=== PATIENT | female | born 1980 | race Two or more races ===

== ENCOUNTER 2018-04-06 00:16 | Emergency (ER) | payer OTHER ==
[~2018-04-06] VITALS: Ht 177.8 cm; Wt 59.0 kg
[2018-04-06] MEDS ORDERED: ACETAMINOPHEN ES 500 MG TABLET PO ONE (00:30)
--- NOTE | 2018-04-06 00:30 | NUR ---
PATIENT WALKED INTO ER C/O LEFT HAND PALM LACERATION. PATIENT STATES SHE WAS CUTTING WATERMELON AND KNIFE SLIPPED AND LACERATED LEFT PALM. LACERATION IS ABOUT 1 1/2 INCH. BLEEDING STOPPED
[2018-04-06] MEDS ORDERED: ACETAMINOPHEN ES 500 MG TABLET ONE (00:40)
[2018-04-06 01:05] VITALS: BP 133/75
--- NOTE | 2018-04-06 01:05 | NUR ---
Patient discharged to home in stable conditon WITH TAKING PATIENT HOME. Written and verbal after care instructions given. Patient verbalizes understanding of instructions. WALKED OUT OF ER WITH NO DISTRESS NOTED
== END 2018-04-06 01:06 | disposition home or self-care (01) ==
LOC: ER 00:23
DX: S61.412A Laceration without foreign body of left hand, initial encounter (principal); W45.8XXA Other foreign body or object entering through skin, initial encounter; Y93.89 Activity, other specified; Y92.89 Other specified places as the place of occurrence of the external cause; Y99.8 Other external cause status
CPT/HCPCS: A4217; A4663; A9150

== ENCOUNTER 2019-07-20 11:00 | Emergency (ER) | payer OTHER, MEDICAID ==
[~2019-07-20] VITALS: Ht 172.7 cm; Wt 74.8 kg
[2019-07-20] MEDS ORDERED: KETOROLAC TROMETHAMINE 30 MG INJ ONE (11:27)
[2019-07-20] MEDS ORDERED: KETOROLAC TROMETHAMINE 30 MG INJ IM ONE (11:30)
[2019-07-20 11:31] LABS: *BILIRUBIN,URIN NEGATIVE (NEGATIVE); *BLOOD, URINE NEGATIVE (NEGATIVE); *CLARITY,URINE SLIGHTLY CLOUDY (CLEAR); *COLOR,URINE YELLOW (YELLOW); *KETONES,URINE TRACE (NEGATIVE); *UROBILINOGEN,URINE 0.2 E.U./dl (NORMAL); LEUKOCYTE ESTERASE ,URINE 3+ (NEGATIVE); NITRITE, URINE NEGATIVE (NEGATIVE); UGLUCOSE NEGATIVE (NEGATIVE)
[2019-07-20 11:32] LABS: *URINE HCG, QUAL NEGATIVE (NEGATIVE)
[2019-07-20 11:36] LABS: BACTERIA,URINE FEW /HPF (NONE SEEN); RBC,URINE NONE SEEN /HPF (0-3); SQUAMOUS EPITHELIAL CELL,UR MODERATE /HPF (NONE SEEN); WBC,URINE 0-3 /HPF (0-3)
--- NOTE | 2019-07-20 11:44 | NUR ---
Patient discharged to home in stable conditon. Written and verbal after care instructions given. Patient verbalizes understanding of instructions.PT WALKS IN STEADY GAIT. BACK PAIN DOWN TO TOLERABLE LEVEL.
== END 2019-07-20 11:51 | disposition home or self-care (01) ==
LOC: ER 11:00
DX: M54.9 Dorsalgia, unspecified (principal)
CPT/HCPCS: 81000; 81001; 84703; 87086; 96372; 99283; J1885; A4663

== ENCOUNTER 2021-05-29 21:49 | Inpatient (IN) | payer OTHER, MEDICAID ==
[~2021-05-29] VITALS: Ht 172.7 cm; Wt 72.6 kg
--- NOTE | 2021-05-29 21:58 | NUR ---
Pt. arrived from home, chief complaint is cough with brown sputum, fever, weakness, and chest pain for past 5-6 days. Pt. took a 5 day course of zithromax previously but symptoms have worsened. Pt. Vss. Will continue to monitor.
[2021-05-29 22:44] LABS: MEAN CORPUSCULAR HEMOGLOBIN 26.7 uug (24.7-32.8); MEAN CORPUSCULAR VOLUME 82.4 fL (75.5-95.3); PLATELET COUNT (AUTO) 235 K/uL (179-408)
[2021-05-29] MEDS ORDERED: DEXAMETHASONE SOD PHOSPHATE 4 MG INJ IV ONE (23:00)
[2021-05-29] MEDS ORDERED: CEFTRIAXONE 2 G in IV DEXTROSE 5% 100 ML IV ONE (23:00)
[2021-05-29] MEDS ORDERED: IV NORMAL SALINE 1000 ML BAG IV ONE (23:00)
[2021-05-29] MEDS ORDERED: DEXAMETHASONE SOD PHOSPHATE 10 MG INJ ONE (23:10)
[2021-05-29] MEDS ORDERED: CEFTRIAXONE /D5W 50ML IVPB **ER PYXIS IV ONE (23:11)
--- NOTE | 2021-05-30 01:00 | NUR ---
Dr. Lutz on panel call with Joel Butts DNP.
[2021-05-30] MEDS ORDERED: ACETAMINOPHEN 325 MG TABLET PO PRN (01:15)
[2021-05-30] MEDS ORDERED: ONDANSETRON 4 MG/2 ML VIAL IV PRN (01:15)
[2021-05-30] MEDS ORDERED: MAGNESIUM HYDROXIDE 30 ML LIQUID UDC PO PRN (01:15)
[2021-05-30] MEDS ORDERED: IV NS 1000 ML 1,000 ML IV PRN (01:15)
[2021-05-30] MEDS ORDERED: Z GUARD REMEDY PASTE 57 GM TUBE TOP PRN (01:15)
[2021-05-30] MEDS ORDERED: AZIT250T13 PO (01:43)
[2021-05-30] MEDS ORDERED: ACET-2154 PO (01:43)
--- NOTE | 2021-05-30 02:30 | NUR ---
Pt. resting in bed. Vss. Pt. continues to have cough, chills. Pt. is stable, denies any new onset sob or chest pain. Pt. provided food, water, and blankets. Will continue to monitor.
--- NOTE | 2021-05-30 06:56 | NUR ---
Gave report to MAISHA Meza.
[2021-05-30] MEDS ORDERED: PANTOPRAZOLE SODIUM 40 MG TABLET.DR PO SCH (07:00)
[2021-05-30] MEDS ORDERED: PANTOPRAZOLE SODIUM 40 MG TABLET.DR PO ONE (07:32)
--- NOTE | 2021-05-30 09:45 | NUR ---
Barry Her,DNP in to see patient and stated patient to be discharged home.
[2021-05-30] MEDS ORDERED: AMOX1TAB15 PO (09:56)
[2021-05-30] MEDS ORDERED: ALBU6.7H9 INH (09:56)
[2021-05-30] MEDS ORDERED: DOXY-326 PO (09:56)
[2021-05-30] MEDS ORDERED: PRED20TA PO (09:56)
--- NOTE | 2021-05-30 10:37 | NUR ---
Patient discharged to home in stable condition. Written and verbal after care instructions given. Patient verbalizes understanding of instructions. Stressed follow up or return to ER for worsening s/s.
--- NOTE | 2021-05-30 10:37 | NUR ---
IV removed. Catheter intact and site benign. Pressure and 4x4 gauze applied to site. No bleeding noted.
[2021-05-30 10:38] VITALS: BP 127/67
[2021-05-30] MEDS ORDERED: CEFTRIAXONE 2 G in IV DEXTROSE 5% 100 ML IV SCH (23:00)
== END 2021-05-30 10:37 | disposition home or self-care (01) | DRG 137 ==
LOC: ER 22:05 → TRANSITION 05-30 02:38
PROVIDERS: ADMIT Nurse Practitioner Acute Care; ATTEND Nurse Practitioner Acute Care
DX: U07.1 COVID-19 (principal); J12.82 Pneumonia due to coronavirus disease 2019; J15.9 Unspecified bacterial pneumonia; J20.9 Acute bronchitis, unspecified; Z20.822 Contact with and (suspected) exposure to COVID-19
CPT/HCPCS: 36415; 70030-TC; 71045; 85025; 87070; 93005; A4663; G0378; J0696; J1100; U0003

== ENCOUNTER 2022-01-13 08:02 | Emergency (ER) | payer OTHER ==
[~2022-01-13] VITALS: Ht 172.7 cm; Wt 74.8 kg
[~2022-01-13 08:02] MED LIST: ALBU6.7H9 INH; AMOX1TAB15 PO; DOXY-326 PO; PRED20TA PO
[2022-01-13 08:14] LABS: *BILIRUBIN,URIN 2+ (NEGATIVE); *BLOOD, URINE 3+ (NEGATIVE); *CLARITY,URINE CLEAR (CLEAR); *COLOR,URINE Brown (YELLOW); *KETONES,URINE TRACE (NEGATIVE); LEUKOCYTE ESTERASE ,URINE 1+ (NEGATIVE); NITRITE, URINE NEGATIVE (NEGATIVE); UGLUCOSE NEGATIVE (NEGATIVE)
[2022-01-13 08:15] LABS: *URINE HCG, QUAL NEG (NEGATIVE)
[2022-01-13] MEDS ORDERED: IV NORMAL SALINE 1000 ML BAG IV ONE (08:15)
[2022-01-13] MEDS ORDERED: KETOROLAC TROMETHAMINE 15 MG INJ IVP ONE (08:15)
[2022-01-13 08:25] LABS: HEMATOCRIT 37.2 % (31.2-41.9); MEAN CORPUSCULAR HEMOGLOBIN 27.4 uug (24.7-32.8); MEAN CORPUSCULAR VOLUME 83.9 fL (75.5-95.3); PLATELET COUNT (AUTO) 251 K/uL (179-408)
[2022-01-13 08:27] LABS: BACTERIA,URINE FEW /HPF (NONE SEEN); RBC,URINE 80-100 /HPF (0-3); SQUAMOUS EPITHELIAL CELL,UR FEW /HPF (NONE SEEN)
[2022-01-13 08:45] LABS: CREATININE 0.8 mg/dL (0.6-1.3)
[2022-01-13] MEDS ORDERED: KETOROLAC TROMETHAMINE 15 MG INJ ONE (08:47)
[2022-01-13 08:50] LABS: BILIRUBIN,DIRECT 0.1 mg/dL (0.0-0.2); BILIRUBIN,TOTAL 0.4 mg/dL (0.2-1.0); TOTAL PROTEIN, SERUM 7.7 g/dL (6.4-8.2)
[2022-01-13] MEDS ORDERED: CEFTRIAXONE 1 G in IV DEXTROSE 5% 50 ML IV ONE (09:00)
[2022-01-13] MEDS ORDERED: CEFTRIAXONE /D5W 50ML IVPB **ER PYXIS IV ONE (09:15)
[2022-01-13] MEDS ORDERED: CEPH500C2 PO (09:52)
[2022-01-13] MEDS ORDERED: IBUP-1955 PO (09:52)
[2022-01-13 10:00] VITALS: BP 103/63
== END 2022-01-13 10:03 | disposition home or self-care (01) ==
LOC: ER 08:02
DX: N39.0 Urinary tract infection, site not specified (principal); R30.0 Dysuria; Z79.899 Other long term (current) drug therapy; Z79.2 Long term (current) use of antibiotics
CPT/HCPCS: 36415; 74176; 80048; 80076; 81001; 83690; 84703; 85025; 87086; 96361; 96365; 96375; 99284; J0696; J1885; A4663; J7030

== ENCOUNTER 2022-02-24 14:59 | Emergency (ER) | payer OTHER ==
[~2022-02-24] VITALS: Ht 172.7 cm; Wt 73.5 kg
[~2022-02-24 14:59] MED LIST changes: +CEPH500C2 PO; +IBUP-1955 PO
--- NOTE | 2022-02-24 15:38 | NUR ---
at bedside to examine pt.
[2022-02-24 15:51] LABS: *BILIRUBIN,URIN NEGATIVE (NEGATIVE); *BLOOD, URINE NEGATIVE (NEGATIVE); *CLARITY,URINE CLEAR (CLEAR); *COLOR,URINE YELLOW (YELLOW); *KETONES,URINE TRACE (NEGATIVE); *URINE HCG, QUAL NEG (NEGATIVE); *UROBILINOGEN,URINE 0.2 E.U./dl (NORMAL); LEUKOCYTE ESTERASE ,URINE NEGATIVE (NEGATIVE); NITRITE, URINE NEGATIVE (NEGATIVE); UGLUCOSE NEGATIVE (NEGATIVE)
[2022-02-24] MEDS ORDERED: KETOROLAC TROMETHAMINE 30 MG INJ IM ONE (16:00)
[2022-02-24] MEDS ORDERED: KETOROLAC TROMETHAMINE 30 MG INJ ONE (16:02)
[2022-02-24] MEDS ORDERED: PRED50TA PO (16:07)
[2022-02-24] MEDS ORDERED: GABA-536 PO (16:07)
--- NOTE | 2022-02-24 16:16 | NUR ---
DCd instructions and prescriptions given to pt. who verbalized understanding.
== END 2022-02-24 16:17 | disposition home or self-care (01) ==
LOC: ER 15:12
DX: M54.50 Low back pain, unspecified (principal); G89.29 Other chronic pain
CPT/HCPCS: 81003; 84703; 87086; 96372; 99283; J1885; A4663

== ENCOUNTER 2022-06-21 17:41 | Emergency (ER) | payer OTHER ==
[~2022-06-21] VITALS: Ht 175.3 cm; Wt 79.4 kg
[~2022-06-21 17:41] MED LIST changes: +GABA-536 PO; +PRED50TA PO
[2022-06-21] MEDS ORDERED: BENZ-13 PO (19:55)
[2022-06-21 20:03] LABS: *URINE HCG, QUAL NEG (NEGATIVE)
[2022-06-21 20:36] VITALS: BP 130/70
== END 2022-06-21 20:36 | disposition home or self-care (01) ==
LOC: ER 17:42
DX: B34.9 Viral infection, unspecified (principal); Z28.310 Unvaccinated for COVID-19; Z20.822 Contact with and (suspected) exposure to COVID-19
CPT/HCPCS: 71045; 84703; A4663